=== PATIENT | male | born 1980 | race Caucasian/White ===

== ENCOUNTER 2025-01-30 17:45 | Inpatient (IN) | payer BC ==
[~2025-01-30] VITALS: Ht 190.5 cm; Wt 78.5 kg
[2025-01-30 18:15] LABS: PLATELET COUNT (AUTO) 191 K/uL (150-450); RED BLOOD CELL COUNT(AUTO) 3.33 MIL/uL (4.5-6.0); RED CELL DISTRIBUTION WIDTH 16.3 % (11.5-15.0); WHITE BLOOD COUNT (AUTO) 9.5 K/uL (4.3-11.0)
[2025-01-30 18:26] LABS: INR 1.45 (0.91-1.10)
[2025-01-30 18:27] LABS: ASPARTATE AMINOTRANSFERASE 47 U/L (15-37); CALCIUM, SERUM 6.4 mg/dL (8.5-10.1); CREATININE 0.7 mg/dL (0.6-1.3); SODIUM SERUM 143 mmol/L (136-145); TOTAL PROTEIN, SERUM 6.6 g/dL (6.4-8.2); UREA NITROGEN, BLOOD 9 mg/dL (7-18)
[2025-01-30] MEDS ORDERED: KETOROLAC TROMETHAMINE INJ 30 MG/ML VIAL ONE (18:46)
[2025-01-30] MEDS: KETOROLAC TROMETHAMINE INJ 30 MG/ML VIAL IV ONE (18:52)
[2025-01-30] MEDS: POTASSIUM CHLORIDE 20 MEQ TAB.PRT.SR PO ONE (18:52)
[2025-01-30 18:58] LABS: APPEARANCE,URINE CLEAR (CLEAR); BLOOD, URINE Trace-intact Ery/uL (NEGATIVE); LEUKOCYTE ESTERASE ,URINE Negative (NEGATIVE); NITRITE, URINE NEGATIVE (NEGATIVE); UGLUCOSE Negative (NEGATIVE)
[2025-01-30 19:06] LABS: AMPHETAMINE, URINE NEGATIVE (NEGATIVE); BARBITURATE, URINE NEGATIVE (NEGATIVE); COCCAINE, URINE NEGATIVE (NEGATIVE); OPIATE, URINE NEGATIVE (NEGATIVE)
[2025-01-30 19:19] LABS: ADD URINE CULTURE NO; SQUAMOUS EPITHELIAL CELL,UR Rare /HPF (None Seen)
[2025-01-30 19:20] LABS: BENZODIAZEPINE, URINE POSITIVE (NEGATIVE); CANNABINOID, URINE POSITIVE (NEGATIVE)
[2025-01-30 19:41] LABS: ALCOHOL, BLOOD < 3 mg/dL (0-10)
[2025-01-30] MEDS ORDERED: IOHEXOL-300 100 ML VIAL IV ONE (19:46)
[2025-01-30] MEDS ORDERED: IV NS 0.9% 250 ML IV ONE (19:46)
[2025-01-30] MEDS ORDERED: TRAMADOL HCL 50 MG TABLET ONE (19:58)
[2025-01-30] MEDS ORDERED: ACETAMINOPHEN ES 500 MG TABLET ONE (19:59)
[2025-01-30] MEDS: ACETAMINOPHEN ES 500 MG TABLET PO ONE (20:17)
[2025-01-30] MEDS: TRAMADOL HCL 50 MG TABLET PO ONE (20:18)
[2025-01-30] MEDS ORDERED: POTA-88 PO (20:38)
[2025-01-30] MEDS ORDERED: MAG HYDROX/AL HYDROX/SIMETH 30 ML UDC ONE (20:41)
[2025-01-30] MEDS ORDERED: PANTOPRAZOLE 40 MG VIAL ONE (20:41)
[2025-01-30] MEDS ORDERED: LIDOCAINE VISCOUS 2% UD 15 ML UDC ONE (20:42)
[2025-01-30] MEDS: MAG HYDROX/AL HYDROX/SIMETH 30 ML UDC PO ONE (20:48)
[2025-01-30] MEDS: LIDOCAINE VISCOUS 2% UD 15 ML UDC MM ONE (20:48)
[2025-01-30] MEDS: PANTOPRAZOLE 40 MG VIAL IV ONE (20:54)
[2025-01-30] MEDS ORDERED: ACETAMINOPHEN ES 500 MG TABLET PO PRN (21:30)
[2025-01-30] MEDS ORDERED: ONDANSETRON HCL/PF 4 MG/2 ML VIAL IVP PRN (21:30)
[2025-01-30] MEDS ORDERED: CLONIDINE HCL 0.1 MG TABLET PO PRN (21:30)
[2025-01-30] MEDS ORDERED: PHENYLEPHRINE/SHK LV/MO/PET,WH 30 GM TUBE RC PRN (21:30)
[2025-01-30] MEDS ORDERED: DICYCLOMINE HCL 10 MG CAPSULE PO PRN (22:30)
[2025-01-30] MEDS ORDERED: BISMUTH SUBSALICYLATE TAB 262 MG TAB.CHEW PO PRN (22:30)
[2025-01-30] MEDS: HYDROMORPHONE 1 MG/1 ML DISP.SYRIN IV PRN (22:50)
[2025-01-30] MEDS ORDERED: LORAZEPAM INJ 2 MG/ML VIAL IV PRN (23:00)
[2025-01-30] MEDS ORDERED: LEVETIRACETAM (500MG) 500 MG/5 ML VIAL IV ONE (23:32)
[2025-01-30] MEDS: NICOTINE PATCH (14MG) 14 MG PATCH.TD24 TD SCH (23:59)
[2025-01-31] VITALS: BP 108/75; TEMP 98; O2SAT 98
[2025-01-31] MEDS: LEVETIRACETAM (500MG) 1,000 MG in IV NS 0.9% 90 ML IV ONE
[2025-01-31] MEDS: TEMAZEPAM 15 MG CAPSULE PO PRN (01:26)
[2025-01-31 04:00] VITALS: BP 116/84; TEMP 97.7; O2SAT 97
[2025-01-31 07:52] LABS: PLATELET COUNT (AUTO) 150 K/uL (150-450); RED BLOOD CELL COUNT(AUTO) 3.20 MIL/uL (4.5-6.0); RED CELL DISTRIBUTION WIDTH 16.1 % (11.5-15.0); WHITE BLOOD COUNT (AUTO) 7.1 K/uL (4.3-11.0)
[2025-01-31 08:00] VITALS: BP 117/68; TEMP 98.3; O2SAT 97
[2025-01-31] MEDS: LEVETIRACETAM (250 MG) 250 MG TABLET PO SCH (08:30)
[2025-01-31] MEDS: PANTOPRAZOLE 40 MG TABLET.DR PO SCH (08:30)
[2025-01-31] MEDS: THIAMINE HCL 100 MG TABLET PO SCH (08:30)
[2025-01-31] MEDS: FOLIC ACID 1 MG TABLET PO SCH (08:30)
[2025-01-31] MEDS: SUCRALFATE 1 G TABLET PO SCH (08:30)
[2025-01-31] MEDS: CIPROFLOXACIN HCL 500 MG TABLET PO SCH (08:30)
[2025-01-31] MEDS: CALCIUM CARBONATE (1250) 500 MG TABLET PO SCH (08:31)
[2025-01-31] MEDS: METRONIDAZOLE 500 MG TABLET PO SCH (08:31)
[2025-01-31 08:41] LABS: CALCIUM, SERUM 6.6 mg/dL (8.5-10.1); CREATININE 0.8 mg/dL (0.6-1.3); PHOSPHORUS 4.5 mg/dL (2.5-4.9); UREA NITROGEN, BLOOD 5.0 mg/dL (7-18)
[2025-01-31] MEDS: DIPHENOXYLATE HCL/ATROP SULF 1 UDTAB TABLET PO SCH (08:43)
[2025-01-31 08:51] LABS: SODIUM SERUM 144.0 mmol/L (136-145)
[2025-01-31] MEDS: Magnesium 1GM/D5W 100ML PREMIX 100 ML IV SCH (09:29)
[2025-01-31] MEDS: POTASSIUM CL. PREMIX PERIPHER. 50 ML IV SCH (11:04)
[2025-01-31 12:00] VITALS: BP 118/82; TEMP 98.5; O2SAT 97
[2025-01-31 16:00] VITALS: BP 129/81; TEMP 98.5; O2SAT 97
[2025-01-31 20:00] VITALS: BP 128/84; TEMP 98.6; O2SAT 99
[2025-02-01 04:00] VITALS: BP 118/73; TEMP 98.6; O2SAT 97
[2025-02-01 07:31] LABS: PLATELET COUNT (AUTO) 155 K/uL (150-450); RED BLOOD CELL COUNT(AUTO) 3.48 MIL/uL (4.5-6.0); RED CELL DISTRIBUTION WIDTH 16.3 % (11.5-15.0); WHITE BLOOD COUNT (AUTO) 5.6 K/uL (4.3-11.0)
[2025-02-01 07:45] LABS: CALCIUM, SERUM 7.4 mg/dL (8.5-10.1); CREATININE 0.8 mg/dL (0.6-1.3); PHOSPHORUS 5.3 mg/dL (2.5-4.9); UREA NITROGEN, BLOOD 2.0 mg/dL (7-18)
[2025-02-01 07:56] LABS: SODIUM SERUM 143.0 mmol/L (136-145)
[2025-02-01] MEDS: POTASSIUM CHLORIDE 20 MEQ TAB.PRT.SR PO ONE ×2 (08:44→16:38)
[2025-02-01] MEDS: HYDROMORPHONE 1 MG/1 ML DISP.SYRIN IV PRN (08:50)
[2025-02-01] MEDS: MAGNESIUM OXIDE 400 MG TABLET PO ONE (10:42)
[2025-02-01 12:00] VITALS: BP 113/80; TEMP 98.6; O2SAT 95
[2025-02-01] MEDS ORDERED: METR500T PO (17:05)
[2025-02-01] MEDS ORDERED: CIPR-262 PO (17:05)
[2025-02-01] MEDS ORDERED: LEVE250T2 PO (17:05)
[2025-02-01] MEDS ORDERED: LEVE500T9 PO (17:05)
== END 2025-02-02 05:53 | disposition home or self-care (01) | DRG 101 ==
LOC: ER 17:47 → MEDSG1 21:51 → TELE1 22:20 → MEDSG1 01-31 11:44
PROVIDERS: ADMIT Registered Nurse Psychiatric/Mental Health; ATTEND Nurse Practitioner Family
DX: R56.9 Unspecified convulsions (principal); F10.139 Alcohol abuse with withdrawal, unspecified; K90.829 Short bowel syndrome, unspecified; K86.0 Alcohol-induced chronic pancreatitis; E87.6 Hypokalemia; E83.51 Hypocalcemia; Y90.0 Blood alcohol level of less than 20 mg/100 ml; Z91.81 History of falling; Z71.6 Tobacco abuse counseling; Z91.148 Patient's other noncompliance with medication regimen for other reason; D53.9 Nutritional anemia, unspecified; E88.09 Other disorders of plasma-protein metabolism, not elsewhere classified; E83.42 Hypomagnesemia; F17.200 Nicotine dependence, unspecified, uncomplicated; Z90.49 Acquired absence of other specified parts of digestive tract; Z87.19 Personal history of other diseases of the digestive system; S00.83XA Contusion of other part of head, initial encounter; W19.XXXA Unspecified fall, initial encounter; Y92.9 Unspecified place or not applicable; K29.70 Gastritis, unspecified, without bleeding
CPT/HCPCS: 36415; 70450-TC; 71045-TC; 80048-TC; 80076-TC; 81001; 82962-TC; 83690-TC; 83735-TC; 84100-TC; 84132-TC; 85025-TC; 85730-TC; A4223; G0378; G0480; J1171; J1885; J1953; J2470; J3475; J3480; J7030; J7050; Q9967